=== PATIENT | male | born 1985 | race Asian ===

== ENCOUNTER 2018-05-20 16:55 | Outpatient (CLI) | payer MEDICAID | END 2018-05-20 16:56 | disposition critical access hospital (66) | LOC: EMS 16:55 | PROVIDERS: ATTEND Surgery | DX: M54.2 Cervicalgia (principal); M25.512 Pain in left shoulder; M25.511 Pain in right shoulder; R25.2 Cramp and spasm; R45.1 Restlessness and agitation; R51 Headache; V43.62XA Car passenger injured in collision with other type car in traffic accident, initial encounter; Y92.413 State road as the place of occurrence of the external cause | CPT/HCPCS: A0425; A0429; A0999 ==

== ENCOUNTER 2018-05-20 17:23 | Emergency (ER) | payer OTHER, MEDICAID ==
[2018-05-20 17:28] VITALS: BP 155/99
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
[2018-05-20] MEDS ORDERED: IBUPROFEN 600 MG TABLET PO STA (17:43)
[2018-05-20] MEDS ORDERED: ACETAMINOPHEN 325 MG TABLET PO STA (17:43)
== END 2018-05-20 17:56 | disposition home or self-care (01) ==
LOC: EDUNIT# → ED 17:23
DX: M62.838 Other muscle spasm (principal); S06.0X0A Concussion without loss of consciousness, initial encounter; V49.50XA Passenger injured in collision with unspecified motor vehicles in traffic accident, initial encounter; F17.200 Nicotine dependence, unspecified, uncomplicated
CPT/HCPCS: 99283; A9270